=== PATIENT | female | born 1990 | race Hispanic/Latino ===

== ENCOUNTER 2021-10-12 07:29 | Inpatient (IN) | payer OTHER ==
[2021-10-12] MEDS ORDERED: ZOLPIDEM TARTRATE 5 MG TABLET PO PRN (13:31)
[2021-10-12] MEDS ORDERED: DIPHENHYDRAMINE 25 MG TAB/CAP PO PRN (13:31)
[2021-10-12] MEDS ORDERED: MAGNES/ALUMIN/SIMET 30ML UCUP PO PRN (13:31)
[2021-10-12] MEDS ORDERED: MEPERIDINE HCL 25 MG/ML SYR IV PRN (13:31)
[2021-10-12] MEDS ORDERED: MIDAZOLAM HCL 2 MG/2 ML INJ IV PRN (13:31)
[2021-10-12] MEDS ORDERED: CARBOPROST TROME 250 MCG/ML IM PRN (13:31)
[2021-10-12] MEDS ORDERED: PROMETHAZINE INJ 25 MG/ML AMP IM PRN (13:31)
[2021-10-12] MEDS ORDERED: Ringers Lactate 1,000 ML IV PRN (13:31)
[2021-10-12] MEDS ORDERED: BUTORPHANOL 1 MG/ML INJ IV PRN (13:31)
[2021-10-12] MEDS ORDERED: METHYLERGONOVINE 0.2MG/ML AMP IM PRN (13:31)
[2021-10-12] MEDS ORDERED: OXYTOCIN/LR 20 UNIT/1,000 ML BAG IV SCH (14:00)
[2021-10-12 14:59] LABS: Absolute Lymphocytes (CBC) 2.2 K/uL (0.7-4.9); Hematocrit 35.2 % (36.0-45.0); Lymphocytes % 22.1 % (15.3-44.8); MCV 81.5 fL (80-100); MPV 9.8 fL (7.6-11.3); RBC Red Blood Cell Count 4.32 M/uL (3.86-4.86)
[2021-10-12] MEDS: miSOPROStoL 100 MCG TAB PO PRN ×2 (15:08→15:26)
[2021-10-12 15:10] LABS: Urine Appearance Clear (Clear); Urine Bilirubin Negative (Negative); Urine Blood Negative (Negative); Urine Color Yellow (Yellow); Urine Glucose Negative (Negative); Urine Protein 1+ (Negative); Urine Specific Gravity 1.025 (1.005-1.030); Urine Urobilinogen 0.2 mg/dL (0.2-1.0); Urine pH 5.5 (5.0-7.0)
[2021-10-12 15:33] LABS: Urine Bacteria >50 /HPF (<20); Urine RBC NONE SEEN /HPF (NONE SEEN)
[2021-10-12 15:34] LABS: Urine Mucus HEAVY /HPF (NONE SEEN)
[2021-10-12 15:57] VITALS: BMI 32.5
[2021-10-12] MEDS ORDERED: FENTANYL/BUPIVACAINE/NS/PF 200 MCG/100 ML BAG EP PRN (16:07)
[2021-10-12] MEDS ORDERED: BUPIVACAINE 0.25% PF 10 ML VIAL IJ PRN (16:07)
[2021-10-12] MEDS: Ringers Lactate 1,000 ML IV SCH (18:15)
[2021-10-12 18:36] LABS: Urine Appearance Clear (Clear); Urine Bilirubin Negative (Negative); Urine Blood Trace-intact (Negative); Urine Color Yellow (Yellow); Urine Glucose Negative (Negative); Urine Protein Trace (Negative); Urine Specific Gravity 1.015 (1.005-1.030); Urine Urobilinogen 0.2 mg/dL (0.2-1.0); Urine pH 6.5 (5.0-7.0)
[2021-10-12] MEDS ORDERED: MAGNESIUM SULF/STERILE WATER 1,000 ML IV SCH (19:00)
[2021-10-12 19:09] LABS: Urine Bacteria <20 /HPF (<20); Urine RBC <5 /HPF (NONE SEEN)
--- NOTE | 2021-10-12 19:56 | PREOPHP ---
Date of Admission: 10/12/2021 History Of Present Illness: A 31-year-old primigravida, followed antepartum, noted to be insulin-dep endent diabetic, also on metformin, has been seen in consultation with Dr. Carrasco, high-risk obstetric s from [facility], who was advised delivery at this time. His evaluation shows that the placental blood flow was decreasing. Amniotic fluid now was in the oligohydramnios range and the pat ient is at 37 weeks and he thinks that the delivery should occur at this point. This has been discus sed with the patient and she agrees. Full pre-admission talk about options including Cytotec versus section. She wishes to go with Cytotec. She knows that during the labor if baby shows any problems, we will revert to section. Family History: Two or 3 of the grandparents apparently with hypertension. Also grandparents with d iabetes. No other problems. No cancers in the family. No strokes. Past Medical History: No serious medical illnesses. Past Surgical History: No surgeries. Allergies: NO ALLERGIES. Medications: She has been on metformin as well as Levemir and NovoLog. Blood sugars have been fairly reasonable. Was not sure of her last menstrual period, but numerous ul trasounds have said she is due on the , which makes the patient approximately 37 weeks today. Physical Examination: HEENT: Clear. Pupils equal, round, reactive to light and accommodation. Conjunctivae are well perf used. No oral, lingual, or buccal lesions. Chest and Lungs: Clear. Heart: Without murmurs, thrills, heaves, or rubs. Breasts: Without masses on previous visits. Abdomen: Term size. Extremities: Clear without edema, cyanosis, or clubbing. Although, Dr. Carrasco is also concerned about possible early development of preeclampsia. Cervix is 1. 5 cm, 50% effaced, vertex, well applied at -1 station. We will use Cytotec 50 mcg q.6 hours if neces santa up to 3 doses and then tomorrow begin oxytocin stimulation if needed. Full labor talk given. T he patient also has a diagnosis of hypothyroidism. NBC/MODL Voice ID: [id number]
[2021-10-13] MEDS: Ringers Lactate 1,000 ML IV SCH ×3 (00:18→05:00)
[2021-10-13] MEDS ORDERED: BUPIVACA 0.25%/EPI 0.0005% MDV 50 ML VIAL EP ONE (01:39)
[2021-10-13] MEDS ORDERED: FENTANYL CITR 100 MCG/2 ML IV ONE (01:42)
[2021-10-13 05:02] LABS: Urine Appearance Clear (Clear); Urine Bilirubin Negative (Negative); Urine Blood Trace-intact (Negative); Urine Color Yellow (Yellow); Urine Glucose Negative (Negative); Urine Protein 1+ (Negative); Urine Specific Gravity 1.025 (1.005-1.030); Urine Urobilinogen 0.2 mg/dL (0.2-1.0); Urine pH 6.5 (5.0-7.0)
[2021-10-13 05:20] LABS: Urine Bacteria <20 /HPF (<20); Urine Mucus 1+ /HPF (NONE SEEN); Urine RBC <5 /HPF (NONE SEEN); Urine Urothelial Cells <5 /HPF (NONE SEEN)
[2021-10-13] MEDS ORDERED: CARBOPROST TROME 250 MCG/ML IM ONE (06:26)
--- NOTE | 2021-10-13 07:00 | PN ---
Joseline Wells returned tonight. The patient has made good progress. She now has an epidural. She is completely dilated. She is a little too numb at this point, so we will turn the epidural back a chele le bit so she can push more effectively. Baby has shown no decelerations throughout the labor though and from the very beginning baby has not had a great deal of variability, but this is something that she came in with symptoms and did not develop during her labor process. She had elevated blood pres sures and was started on magnesium sulfate. We will discontinue the magnesium at this point, so she can push more effectively and, of course, remove the Swenson catheter. Begin pushing and hopefully dany l see some progress in the next 30 minutes or so. Full discussion with the patient and . KIMBERLY/NIKKI Voice ID: [id number] Report ID: [id number]
[2021-10-13] MEDS ORDERED: Oxycodone HCl/Acetaminophen 1 TAB TAB PO PRN ×2 (07:27)
[2021-10-13] MEDS ORDERED: ACETAMINOPHEN 500 MG TAB PO PRN (07:27)
[2021-10-13] MEDS ORDERED: DOCUSATE NA/SENNA CONC 1 TAB PO PRN (07:27)
[2021-10-13] MEDS ORDERED: CARBOPROST TROME 250 MCG/ML IM PRN (07:27)
[2021-10-13] MEDS ORDERED: BISACODYL 10 MG RECTAL SUPP PR PRN (07:27)
[2021-10-13] MEDS ORDERED: DIPHENHYDRAMINE 25 MG TAB/CAP PO PRN (07:27)
[2021-10-13] MEDS: OXYTOCIN/LR 20 UNIT/1,000 ML BAG IV SCH ×2 (08:35→16:00)
[2021-10-13] MEDS ORDERED: CEFAZOLIN 1 GM in NA CHLORIDE 0.9% 50 ML IVPB ONE (09:00)
[2021-10-13] MEDS: IBUPROFEN 600 MG TAB PO PRN ×2 (09:14→18:27)
--- NOTE | 2021-10-13 09:39 | PN ---
The patient is 1.5, almost 2 cm ruptured membranes, clear fluid. Scalp electrode placed just now. W e will try to get a more accurate reading. Baby is not showing any decelerations, but not a lot of v ariability. The patient states that the baby has been active the last few days. Her blood pressures are varying. During the contraction, it is high as 148-150, but her reflexes are completely normal. She has no pretibial edema and only had trace protein on catheterized specimen. She may need magne sium sulfate during the labor. This was discussed with the patient. Right now, I do not think we ne ed to start the magnesium quite at this point. Full discussion with the patient and . KIMBERLY/NIKKI Voice ID: [id number] Report ID: [id number]
--- NOTE | 2021-10-13 10:36 | OP ---
Surgeon: Jono Merrill MD Procedure In Detail: Joseline Wells is a 31-year-old female, followed antepartum, noted to be insulin-d ependent diabetic, hypothyroid, was seen in consult with Dr. Blakely, high-risk management internship, [facility]. Dr. Blakely suggested that the patient be induced at 37 weeks as the placental blood fl ow was decreasing. The baby was experiencing oligohydramnios and the patient was started and develop ed signs of preeclampsia. She was brought into Labor and Delivery yesterday. Cytotec 50 mcg was ins erted. A few hours later, we ruptured membranes. Clear fluid was noted. The baby throughout the la bor had mild variability, but towards at end of the labor actually increased, but this is something t hat was occurring prior to admission. Baby looked good at all times and looked good at delivery. Du ring the labor, her blood pressure has went up. She has had pretibial edema, brisk reflexes +1 on cl tiffany-catch urine. Eventually magnesium sulfate was started 4 g loading dose, 2 g maintenance dose at approximately 0330 this morning. The patient went rapidly to complete after she received her epidura l. Second stage of about 15 to 20 minutes, spontaneous vaginal delivery of an estimated 5.5 to 6 beatriz nds female, Apgars 9 and 9. Small second-degree laceration, repaired with 2-0 chromic. Schultze del wesly of the placenta, which was inspected and noted to be intact and normal mild uterine hypotonus. Hemabate given. Uterus contracted down well. Estimated blood loss 425 cc. The patient tolerated a ll procedures well. Reflexes are still brisk. Blood pressures have improved, but are still in the 1 36/80 range. We will restart the magnesium sulfate 2 g maintenance dose for another few hours. Full discussion with the patient and . Final Diagnoses: Term intrauterine at 37 weeks 1 day at time of delivery, hypothyroidism, insulin-dependent diabetes, nonreassuring assessment by high-risk management internship Dr. Blakely at [facility]. Cytotec for labor induction, vaginal delivery, epidural anesthesia, mild [place] rine hypotonus. NBC/MODL Voice ID: [id number] Report ID: [id number]
[2021-10-13 10:42] LABS: Urine Appearance Clear (Clear); Urine Bilirubin Negative (Negative); Urine Color Yellow (Yellow); Urine Glucose Negative (Negative); Urine Protein Trace (Negative); Urine Specific Gravity >=1.030 (1.005-1.030); Urine Urobilinogen 0.2 mg/dL (0.2-1.0); Urine pH 5.5 (5.0-7.0)
[2021-10-13 10:44] LABS: Urine Blood 2+ (Negative)
[2021-10-13 10:48] LABS: Urine Appearance Clear (Clear); Urine Bilirubin Negative (Negative); Urine Color Yellow (Yellow); Urine Glucose Negative (Negative); Urine Protein Negative (Negative); Urine Specific Gravity >=1.030 (1.005-1.030); Urine Urobilinogen 0.2 mg/dL (0.2-1.0); Urine pH 5.5 (5.0-7.0)
[2021-10-13 11:03] LABS: Urine Blood 1+ (Negative)
--- NOTE | 2021-10-14 07:57 | DS ---
Hospital Course: Joseline Wells is a 31-year-old primigravida followed antepartum in association with Heraclio Blakely, high-cost and risk analysis manager, [facility], insulin-dependent diabetic, noted to be hypo thyroid as well. In the latter part of the , Dr. Blakely's assessment showed non-reassuring status, oligohydramnios, decreased placental blood flow. It was suggested she be delivered at approx imately 37 weeks. She was brought in. Cytotec was inserted 50 mcg later that day. Rupture of membr anes was performed at 1.5 cm clear fluid. She received epidural anesthesia. Short second stage of a bout 20 minutes. Spontaneous delivery of a 5-pound 14-ounce female, Apgars 9 and 9. Schulyanne reinier ry of the placenta was inspected and noted to be intact and normal. Mild uterine hypotonus. Hemabat e given. Estimated blood loss 425 cc. ; afebrile, ambulating, voiding. Lochia is normal. Rh positive, immune to rubella, negative strep, negative COVID. Will be dismissed today. Requests no analgesics. No post epidural problems. To report back to my office in 4-6 weeks for followup. To report any temperature elevation of 100 degrees or greater, severe pain, heavy bleeding, or any ot her type of abnormalities. Final Diagnoses: Term intrauterine at 37 weeks, at the time of Cytotec insertion 37 weeks 1 day, vaginal delivery, epidural anesthesia. Mild uterine hypotonus. Insulin-dependent diabetic, h ypothyroidism, oligohydramnios, decreased placental blood flow, non-reassuring status requiring delivery. NBC/MODL Voice ID: [id number] Report ID: [id number]
[2021-10-14 08:38] VITALS: BP 129/72; TEMP 98.2
[2021-10-14 23:14] LABS: RPR (Rapid Plasma Reagin) NON-REACT (NON-REACT)
[2021-10-18 15:25] LABS: HBsAG Nonreactive (Nonreactive)
== END 2021-10-14 12:00 | disposition home or self-care (01) | DRG 805 ==
LOC: 2ND-WC 13:32
PROVIDERS: ADMIT Specialist; ATTEND Specialist
PROC: 10E0XZZ Delivery of Products of Conception, External Approach (ICD-10-PCS; principal; 2021-10-13)
PROC: 0KQM0ZZ Repair Perineum Muscle, Open Approach (ICD-10-PCS; 2021-10-13)
PROC: 10907ZC Drainage of Amniotic Fluid, Therapeutic from Products of Conception, Via Natural or Artificial Opening (ICD-10-PCS; 2021-10-13)
PROC: 3E0DXGC Introduction of Other Therapeutic Substance into Mouth and Pharynx, External Approach (ICD-10-PCS; 2021-10-13)
DX: O41.03X0 Oligohydramnios, third trimester, not applicable or unspecified (principal); O24.32 Unspecified pre-existing diabetes mellitus in childbirth; Z37.0 Single live birth; O76 Abnormality in fetal heart rate and rhythm complicating labor and delivery; O62.2 Other uterine inertia; O14.94 Unspecified pre-eclampsia, complicating childbirth; O70.1 Second degree perineal laceration during delivery; O99.284 Endocrine, nutritional and metabolic diseases complicating childbirth; E11.9 Type 2 diabetes mellitus without complications; E03.9 Hypothyroidism, unspecified; Z3A.37 37 weeks gestation of pregnancy; Z20.822 Contact with and (suspected) exposure to COVID-19; Z79.4 Long term (current) use of insulin
CPT/HCPCS: 36415; 81003; 81015; 82947; 85025; 86592; 86901; 87086; 87088; 87340; J0690; J2590; J3010; J3475; J7120; U0003